=== PATIENT | male | born 1940 | race Caucasian/White ===

== ENCOUNTER 2016-09-15 18:20 | Inpatient (IN) | payer MEDICARE, BC ==
[~2016-09-15] VITALS: Ht 177.8 cm; Wt 90.0 kg
[~2016-09-15 18:20] MED LIST: BISM262T9 PO
[2016-09-15 21:20] VITALS: BP 119/86
[2016-09-15] MEDS ORDERED: LISI-167 PO (21:30)
[2016-09-15] MEDS ORDERED: MORPHINE SULFATE 4 MG/ML, 1ML IVPush PRN (22:30)
[2016-09-15] MEDS ORDERED: hydrALAzine 20 MG/ML, 1ML IV PRN (22:30)
[2016-09-15] MEDS ORDERED: PHARMACY MAY ADJ FOR RENAL FX MC PRN (22:30)
[2016-09-15] MEDS ORDERED: [UNRECOGNIZED DRUG - REMARK] MC PRN (23:00)
[2016-09-15 23:06] LABS: BLOOD UREA NITROGEN 20 mg/dL (7-18)
[2016-09-15] MEDS: NS + 20MEQ KCL 1,000 ML IV SCH (23:42)
[2016-09-15] MEDS: PIPERACILLIN/TAZO 3.375 GM in SODIUM CHLORIDE 0.9% 50 ML IV SCH (23:42)
[2016-09-15] MEDS: ONDANSETRON 2MG/ML, 2ML IVP PRN (23:49)
[2016-09-15 23:55] VITALS: BP 118/69
[2016-09-16 04:21] VITALS: BP 96/62
[2016-09-16] MEDS: PIPERACILLIN/TAZO 3.375 GM in SODIUM CHLORIDE 0.9% 50 ML IV SCH ×4 (04:51→22:21)
[2016-09-16] MEDS: ONDANSETRON 2MG/ML, 2ML IVP PRN (06:10)
[2016-09-16 06:18] LABS: ASPARTATE AMINO TRANSFERASE 148 U/L (15-37); BLOOD UREA NITROGEN 18 mg/dL (7-18)
[2016-09-16 06:47] LABS: DIFF TOTAL CELLS COUNTED 100 CELL DIFF
[2016-09-16 06:50] LABS: LARGE PLATELETS 1+; MONOS WITH VACUOLES 1+; VERIFY COUNTS? YES
[2016-09-16 07:56] VITALS: BP 127/69
[2016-09-16] MEDS: LISINOPRIL 10 MG TABLET PO SCH (09:00)
[2016-09-16] MEDS: NS + 20MEQ KCL 1,000 ML IV SCH ×2 (09:11→22:22)
[2016-09-16] MEDS ORDERED: FENTANYL PF 250 MCG/5ML ONE (13:22)
[2016-09-16] MEDS ORDERED: MIDAZOLAM 1 MG/ML, 2ML ONE (13:22)
[2016-09-16] MEDS ORDERED: EPHEDRINE 50 MG/ML, 1ML ONE (13:34)
[2016-09-16] MEDS ORDERED: ONDANSETRON 2MG/ML, 2ML ONE (13:34)
[2016-09-16] MEDS ORDERED: PROPOFOL 10 MG/ML, 20ML ONE (13:34)
[2016-09-16] MEDS ORDERED: SUCCINYLCHOLINE 20 MG/ML, 10ML ONE (13:34)
[2016-09-16] MEDS ORDERED: ROCURONIUM 10 MG/ML ONE (13:34)
[2016-09-16] MEDS ORDERED: PHENYLEPHRINE 10 MG/ML ONE (13:34)
[2016-09-16] MEDS ORDERED: OXYcodone 5 MG/5 ML ORAL.SOL UDC PO PRN (14:00)
[2016-09-16] MEDS ORDERED: LABETALOL 5MG/ML, 20ML IV PRN (14:00)
[2016-09-16] MEDS ORDERED: ONDANSETRON 2MG/ML, 2ML IVPush PRN (14:00)
[2016-09-16] MEDS ORDERED: hydrALAzine 20 MG/ML, 1ML IV PRN (14:00)
[2016-09-16] MEDS ORDERED: HYDROmorphone 1 MG/ML, 1ML IV PRN (14:00)
[2016-09-16] MEDS ORDERED: METOCLOPRAMIDE 5 MG/ML, 2ML IV PRN (14:00)
[2016-09-16] MEDS ORDERED: MIDAZOLAM 1 MG/ML, 2ML IV PRN (14:00)
[2016-09-16] MEDS ORDERED: FENTANYL PF 100 MCG/2ML IV PRN (14:00)
[2016-09-16] MEDS ORDERED: PROMETHAZINE 25 MG/ML, 1ML IV PRN (14:00)
[2016-09-16] MEDS ORDERED: MEPERIDINE/PF 25MG/0.5ML IVPush PRN (14:00)
[2016-09-16] MEDS ORDERED: ACETAMINOPHEN 325 MG TABLET PO PRN (14:00)
[2016-09-16] MEDS ORDERED: OMNIPAQUE 350 MG/ML, 50 ML BOTTLE ONE (15:24)
[2016-09-16 19:57] VITALS: BP 129/76
[2016-09-17 00:18] VITALS: BP 107/71
[2016-09-17] MEDS: PIPERACILLIN/TAZO 3.375 GM in SODIUM CHLORIDE 0.9% 50 ML IV SCH ×4 (04:24→22:46)
[2016-09-17 04:31] VITALS: BP 117/71
[2016-09-17] MEDS: NS + 20MEQ KCL 1,000 ML IV SCH ×3 (06:22→22:46)
[2016-09-17 07:19] VITALS: BP 126/73
[2016-09-17] MEDS: LISINOPRIL 10 MG TABLET PO SCH ×2 (08:03→15:17)
[2016-09-17 14:00] VITALS: BP 145/83
[2016-09-17 19:57] VITALS: BP 133/73
[2016-09-18] MEDS: PIPERACILLIN/TAZO 3.375 GM in SODIUM CHLORIDE 0.9% 50 ML IV SCH (04:22)
[2016-09-18 04:25] VITALS: BP 156/87
[2016-09-18 06:35] VITALS: BP 136/77
[2016-09-18 09:14] LABS: BLOOD UREA NITROGEN 8 mg/dL (7-18)
[2016-09-18 09:19] LABS: ASPARTATE AMINO TRANSFERASE 22 U/L (15-37)
[2016-09-18] MEDS: LISINOPRIL 10 MG TABLET PO SCH (09:22)
[2016-09-18 10:55] VITALS: BP 156/89
== END 2016-09-18 11:30 | disposition home or self-care (01) | DRG 438 ==
LOC: 4NOR 20:53 → DCLOUNGE 09-18 11:04
PROVIDERS: ADMIT Internal Medicine; ATTEND Internal Medicine
PROC: 0FC98ZZ Extirpation of Matter from Common Bile Duct, Via Natural or Artificial Opening Endoscopic (ICD-10-PCS; 2016-09-16)
PROC: BF131ZZ Fluoroscopy of Gallbladder and Bile Ducts using Low Osmolar Contrast (ICD-10-PCS; 2016-09-16)
PROC: 0F7C8DZ Dilation of Ampulla of Vater with Intraluminal Device, Via Natural or Artificial Opening Endoscopic (ICD-10-PCS; principal; 2016-09-16 13:00)
DX: K85.90 Acute pancreatitis without necrosis or infection, unspecified (principal); N17.0 Acute kidney failure with tubular necrosis; K80.43 Calculus of bile duct with acute cholecystitis with obstruction; Q78.2 Osteopetrosis; N18.9 Chronic kidney disease, unspecified; I12.9 Hypertensive chronic kidney disease with stage 1 through stage 4 chronic kidney disease, or unspecified chronic kidney disease; K21.9 Gastro-esophageal reflux disease without esophagitis; N20.0 Calculus of kidney; Z80.0 Family history of malignant neoplasm of digestive organs; Z87.11 Personal history of peptic ulcer disease; Z90.3 Acquired absence of stomach [part of]; Z87.442 Personal history of urinary calculi; Z90.49 Acquired absence of other specified parts of digestive tract; Z88.8 Allergy status to other drugs, medicaments and biological substances
CPT/HCPCS: 36415; 71010; 74328; 80048; 80053; 80076; 81003; 82150; 83690; 83735; 84100; 85025; 85610; 93005; J2250; J2405; J2543; J2704; J3010; J3480; Q9967; C1769; C2625; J0330; J2370

== ENCOUNTER 2016-11-14 19:50 | Inpatient (IN) | payer MEDICARE, BC ==
[~2016-11-14] VITALS: Ht 177.8 cm; Wt 87.7 kg
[~2016-11-14 19:50] MED LIST changes: +LISI-167 PO
[2016-11-14 21:52] VITALS: BP 143/80
[2016-11-14] MEDS ORDERED: morphine SULFATE 10 MG/ML, 1ML IVPush PRN (23:30)
[2016-11-14] MEDS ORDERED: TEMAZEPAM 15 MG CAPSULE PO PRN (23:30)
[2016-11-14] MEDS ORDERED: ENALAPRILAT 1.25 MG/ML, 2ML IVPush PRN (23:30)
[2016-11-14] MEDS ORDERED: DOCUSATE 100 MG CAPSULE PO PRN (23:30)
[2016-11-15] MEDS: DEXAMETHASONE 10 MG in SODIUM CHLORIDE 0.9% 50 ML IV SCH ×4 (00:50→17:51)
[2016-11-15 03:19] VITALS: BP 124/67
[2016-11-15 05:13] LABS: HEMATOCRIT 37.2 % (39.2-51.8); HEMOGLOBIN 12.4 g/dL (13.7-18.0); WHITE BLOOD COUNT 4.8 x10^3/uL (3.4-10)
[2016-11-15 05:24] LABS: BLOOD UREA NITROGEN 21 mg/dL (7-18)
[2016-11-15 08:01] VITALS: BP 115/67
[2016-11-15] MEDS: LISINOPRIL 10 MG TABLET PO SCH (08:59)
[2016-11-15 13:27] VITALS: BP 119/54
[2016-11-15 21:21] VITALS: BP 151/78
[2016-11-16] MEDS: DEXAMETHASONE 10 MG in SODIUM CHLORIDE 0.9% 50 ML IV SCH ×5 (01:07→19:24)
[2016-11-16 02:45] VITALS: BP 143/83
[2016-11-16 05:40] LABS: HEMATOCRIT 34.7 % (39.2-51.8); HEMOGLOBIN 11.5 g/dL (13.7-18.0); WHITE BLOOD COUNT 9.8 x10^3/uL (3.4-10)
[2016-11-16 05:46] LABS: ASPARTATE AMINO TRANSFERASE 13 U/L (15-37); BLOOD UREA NITROGEN 24 mg/dL (7-18)
[2016-11-16 06:53] VITALS: BP 121/63
[2016-11-16] MEDS: LISINOPRIL 10 MG TABLET PO SCH (10:43)
[2016-11-16 13:00] VITALS: BP 137/80
[2016-11-16 19:30] VITALS: BP 136/56
[2016-11-16] MEDS: ONDANSETRON 2MG/ML, 2ML IVPush PRN (21:57)
[2016-11-16] MEDS ORDERED: ALUMINUM/MAG/SIMETHICONE 30 ML UDC PO PRN (23:30)
[2016-11-16] MEDS ORDERED: PROMETHAZINE 25MG TABLET PO PRN (23:30)
[2016-11-17 01:08] VITALS: BP 121/69
[2016-11-17] MEDS: DEXAMETHASONE 10 MG in SODIUM CHLORIDE 0.9% 50 ML IV SCH ×4 (01:10→19:36)
[2016-11-17 05:01] LABS: HEMATOCRIT 33.3 % (39.2-51.8); HEMOGLOBIN 10.9 g/dL (13.7-18.0); WHITE BLOOD COUNT 8.4 x10^3/uL (3.4-10)
[2016-11-17 05:09] LABS: BLOOD UREA NITROGEN 25 mg/dL (7-18)
[2016-11-17 07:05] VITALS: BP 125/49
[2016-11-17 07:20] LABS: IS PT STATUS REG ER OR PRE ER? NO
[2016-11-17] MEDS: LISINOPRIL 10 MG TABLET PO SCH (08:51)
[2016-11-17 09:17] LABS: IS PT STATUS REG ER OR PRE ER? NO
[2016-11-17] MEDS ORDERED: REGADENOSON 0.4 MG/5 ML SYRINGE ONE (10:10)
[2016-11-17 13:55] VITALS: BP 130/70
[2016-11-17 19:42] VITALS: BP 140/81
[2016-11-18] MEDS: DEXAMETHASONE 10 MG in SODIUM CHLORIDE 0.9% 50 ML IV SCH ×4 (01:27→20:26)
[2016-11-18 01:31] VITALS: BP 119/73
[2016-11-18 04:56] LABS: HEMATOCRIT 33.3 % (39.2-51.8); HEMOGLOBIN 11.1 g/dL (13.7-18.0); WHITE BLOOD COUNT 7.8 x10^3/uL (3.4-10)
[2016-11-18 05:02] LABS: BLOOD UREA NITROGEN 29 mg/dL (7-18)
[2016-11-18 08:34] VITALS: BP 151/82
[2016-11-18] MEDS: LISINOPRIL 10 MG TABLET PO SCH (08:36)
[2016-11-18 13:06] VITALS: BP 134/78
[2016-11-18 18:40] VITALS: BP 130/78
[2016-11-19] MEDS: DEXAMETHASONE 10 MG in SODIUM CHLORIDE 0.9% 50 ML IV SCH ×4 (01:59→20:46)
[2016-11-19 02:00] VITALS: BP 147/82
[2016-11-19 05:54] LABS: HEMATOCRIT 33.5 % (39.2-51.8); HEMOGLOBIN 11.1 g/dL (13.7-18.0); WHITE BLOOD COUNT 6.4 x10^3/uL (3.4-10)
[2016-11-19 05:59] LABS: BLOOD UREA NITROGEN 31 mg/dL (7-18)
[2016-11-19 06:35] VITALS: BP 151/81
[2016-11-19] MEDS ORDERED: FENTANYL PF 100 MCG/2ML ONE (09:24)
[2016-11-19] MEDS ORDERED: EPHEDRINE 50 MG/ML, 1ML ONE (09:26)
[2016-11-19] MEDS ORDERED: DEXAMETHASONE 4 MG/ML, 1ML ONE (09:26)
[2016-11-19] MEDS ORDERED: ROCURONIUM 10 MG/ML ONE (09:26)
[2016-11-19] MEDS ORDERED: ONDANSETRON 2MG/ML, 2ML ONE (09:26)
[2016-11-19] MEDS ORDERED: SUCCINYLCHOLINE 20 MG/ML, 10ML ONE (09:26)
[2016-11-19] MEDS ORDERED: PROPOFOL 10 MG/ML, 20ML ONE (09:26)
[2016-11-19] MEDS: LISINOPRIL 10 MG TABLET PO SCH ×2 (09:56→11:41)
[2016-11-19] MEDS ORDERED: hydrALAzine 20 MG/ML, 1ML IV PRN (10:00)
[2016-11-19] MEDS ORDERED: ALBUTEROL SULFATE 2.5 MG/3 ML NPPB PRN (10:00)
[2016-11-19] MEDS ORDERED: ONDANSETRON 2MG/ML, 2ML IVPush PRN (10:00)
[2016-11-19] MEDS ORDERED: MIDAZOLAM 1 MG/ML, 5ML IV PRN (10:00)
[2016-11-19] MEDS ORDERED: HYDROmorphone 1 MG/ML, 1ML IV PRN (10:00)
[2016-11-19] MEDS ORDERED: LABETALOL 5MG/ML, 20ML IV PRN (10:00)
[2016-11-19] MEDS ORDERED: PROMETHAZINE 25 MG/ML, 1ML IV PRN (10:00)
[2016-11-19] MEDS ORDERED: FENTANYL PF 100 MCG/2ML IV PRN (10:00)
[2016-11-19] MEDS ORDERED: OXYcodone 5 MG/5 ML ORAL.SOL UDC PO PRN (10:00)
[2016-11-19] MEDS ORDERED: MEPERIDINE/PF 25MG/0.5ML IVPush PRN (10:00)
[2016-11-19] MEDS ORDERED: OMNIPAQUE 350 MG/ML, 50 ML BOTTLE ONE (10:46)
[2016-11-19 12:40] VITALS: BP 148/85
[2016-11-19] MEDS: ONDANSETRON 2MG/ML, 2ML IVPush PRN ×2 (14:52→21:42)
[2016-11-19 20:00] VITALS: BP 128/56
[2016-11-20 01:07] VITALS: BP 115/67
[2016-11-20] MEDS: DEXAMETHASONE 10 MG in SODIUM CHLORIDE 0.9% 50 ML IV SCH ×2 (03:24→08:00)
[2016-11-20] MEDS: NS + 20MEQ KCL 1,000 ML IV SCH ×3 (03:25→21:30)
[2016-11-20] MEDS ORDERED: FENTANYL PF 250 MCG/5ML ONE ×3 (07:07→09:23)
[2016-11-20] MEDS ORDERED: MIDAZOLAM 1 MG/ML, 2ML ONE (07:08)
[2016-11-20] MEDS ORDERED: ONDANSETRON 2MG/ML, 2ML ONE (07:49)
[2016-11-20] MEDS ORDERED: hydrALAzine 20 MG/ML, 1ML ONE (07:49)
[2016-11-20] MEDS ORDERED: EPHEDRINE 50 MG/ML, 1ML ONE (07:49)
[2016-11-20] MEDS ORDERED: CEFAZOLIN 1,000 MG ONE (07:49)
[2016-11-20] MEDS ORDERED: DEXAMETHASONE 4 MG/ML, 1ML ONE (07:49)
[2016-11-20] MEDS ORDERED: SUCCINYLCHOLINE 20 MG/ML, 10ML ONE (07:49)
[2016-11-20] MEDS ORDERED: PROPOFOL 10 MG/ML, 20ML ONE (07:49)
[2016-11-20] MEDS ORDERED: ROCURONIUM 10 MG/ML ONE (07:49)
[2016-11-20] MEDS ORDERED: MEPERIDINE/PF 25MG/0.5ML IVPush PRN (10:00)
[2016-11-20] MEDS ORDERED: LABETALOL 5MG/ML, 20ML IV PRN ×2 (10:00→13:30)
[2016-11-20] MEDS ORDERED: ALBUTEROL SULFATE 2.5 MG/3 ML NPPB PRN (10:00)
[2016-11-20] MEDS ORDERED: PROMETHAZINE 25 MG/ML, 1ML IV PRN (10:00)
[2016-11-20] MEDS ORDERED: ONDANSETRON 2MG/ML, 2ML IVPush PRN (10:00)
[2016-11-20] MEDS ORDERED: FENTANYL PF 100 MCG/2ML IV PRN (10:00)
[2016-11-20] MEDS ORDERED: OXYcodone 5 MG/5 ML ORAL.SOL UDC PO PRN (10:00)
[2016-11-20] MEDS ORDERED: hydrALAzine 20 MG/ML, 1ML IV PRN (10:00)
[2016-11-20] MEDS ORDERED: MIDAZOLAM 1 MG/ML, 2ML IV PRN (10:00)
[2016-11-20] MEDS ORDERED: HYDROmorphone 1 MG/ML, 1ML ONE (11:01)
[2016-11-20] MEDS ORDERED: OXYcodone 5 MG/5 ML ORAL.SOL UDC ONE (11:01)
[2016-11-20] MEDS: HYDROmorphone 1 MG/ML, 1ML IV PRN ×4 (11:05→11:40)
[2016-11-20 13:08] VITALS: BP 169/90
[2016-11-20] MEDS ORDERED: MAGNESIUM HYDROXIDE 8%, 30ML UDC PO PRN (13:30)
[2016-11-20] MEDS ORDERED: PROMETHAZINE 25 MG/ML, 1ML IM PRN (13:30)
[2016-11-20] MEDS ORDERED: DIAZEPAM 5 MG/ML, 2ML IV PRN (13:30)
[2016-11-20] MEDS ORDERED: BISACODYL 10 MG SUPP PR PRN (13:30)
[2016-11-20] MEDS ORDERED: DIPHENHYDRAMINE 50 MG/ML, 1ML IVPush PRN (13:30)
[2016-11-20] MEDS ORDERED: ONDANSETRON 2MG/ML, 2ML IV PRN (13:30)
[2016-11-20] MEDS ORDERED: morphine SULFATE 10 MG/ML, 1ML IV PRN (14:00)
[2016-11-20] MEDS: LISINOPRIL 10 MG TABLET PO SCH (14:43)
[2016-11-20] MEDS: CEFAZOLIN PMX 1GM/50ML 50 ML IVPB SCH (16:17)
[2016-11-20] MEDS: HYDROcodone/APAP 5/325 TABLET PO PRN (17:59)
[2016-11-20 18:49] VITALS: BP 163/82
[2016-11-20] MEDS: chlorproMAZINE 200MG TABLET PO SCH (22:19)
[2016-11-21] MEDS: CEFAZOLIN PMX 1GM/50ML 50 ML IVPB SCH (00:13)
[2016-11-21 02:05] VITALS: BP 114/68
[2016-11-21] MEDS: HYDROcodone/APAP 5/325 TABLET PO PRN ×3 (03:35→16:09)
[2016-11-21 05:20] LABS: HEMATOCRIT 36.8 % (39.2-51.8); HEMOGLOBIN 12.3 g/dL (13.7-18.0); WHITE BLOOD COUNT 12.7 x10^3/uL (3.4-10)
[2016-11-21 05:24] LABS: ASPARTATE AMINO TRANSFERASE 24 U/L (15-37); BLOOD UREA NITROGEN 21 mg/dL (7-18)
[2016-11-21] MEDS: chlorproMAZINE 200MG TABLET PO SCH ×3 (05:42→21:30)
[2016-11-21 08:20] VITALS: BP 132/76
[2016-11-21] MEDS: NS + 20MEQ KCL 1,000 ML IV SCH ×2 (08:30→21:00)
[2016-11-21] MEDS: SENNA/DOCUSATE TABLET PO SCH (10:07)
[2016-11-21] MEDS: LISINOPRIL 10 MG TABLET PO SCH (10:07)
[2016-11-21 15:10] VITALS: BP 127/79
[2016-11-21] MEDS: DIAZEPAM 5 MG TABLET PO PRN (17:41)
[2016-11-21 18:53] VITALS: BP 114/73
[2016-11-21] MEDS: OXYcodone/APAP 5/325MG TABLET PO PRN (23:02)
[2016-11-22 00:49] VITALS: BP 150/84
[2016-11-22] MEDS: OXYcodone/APAP 5/325MG TABLET PO PRN ×2 (03:04→09:29)
[2016-11-22 05:22] LABS: BLOOD UREA NITROGEN 17 mg/dL (7-18); HEMATOCRIT 38.2 % (39.2-51.8); HEMOGLOBIN 12.8 g/dL (13.7-18.0)
[2016-11-22 06:38] VITALS: BP 118/68
[2016-11-22] MEDS: chlorproMAZINE 200MG TABLET PO SCH (07:18)
[2016-11-22] MEDS: NS + 20MEQ KCL 1,000 ML IV SCH (09:27)
[2016-11-22] MEDS: SENNA/DOCUSATE TABLET PO SCH (09:29)
[2016-11-22] MEDS: LISINOPRIL 10 MG TABLET PO SCH (09:29)
[2016-11-22] MEDS ORDERED: OXYC1TAB7 PO (11:17)
[2016-11-22] MEDS: DIAZEPAM 5 MG TABLET PO PRN (11:40)
== END 2016-11-22 12:45 | disposition home or self-care (01) | DRG 471 ==
LOC: 4NOR 21:37 → 5SO 11-16 07:00 → 4NOR 11-18 17:15 → DCLOUNGE 11-22 11:43
PROVIDERS: ADMIT Hospitalist; ATTEND Family Medicine
PROC: 0FC98ZZ Extirpation of Matter from Common Bile Duct, Via Natural or Artificial Opening Endoscopic (ICD-10-PCS; 2016-11-19)
PROC: 0F798ZZ Dilation of Common Bile Duct, Via Natural or Artificial Opening Endoscopic (ICD-10-PCS; 2016-11-19)
PROC: BF101ZZ Fluoroscopy of Bile Ducts using Low Osmolar Contrast (ICD-10-PCS; 2016-11-19)
PROC: 0FPB8DZ Removal of Intraluminal Device from Hepatobiliary Duct, Via Natural or Artificial Opening Endoscopic (ICD-10-PCS; principal; 2016-11-19 15:45)
PROC: 0RG2071 Fusion of 2 or more Cervical Vertebral Joints with Autologous Tissue Substitute, Posterior Approach, Posterior Column, Open Approach (ICD-10-PCS; 2016-11-20)
DX: M48.02 Spinal stenosis, cervical region (principal); E43 Unspecified severe protein-calorie malnutrition; Q78.2 Osteopetrosis; I47.1 Supraventricular tachycardia; T85.520A Displacement of bile duct prosthesis, initial encounter; K80.70 Calculus of gallbladder and bile duct without cholecystitis without obstruction; K21.9 Gastro-esophageal reflux disease without esophagitis; D64.9 Anemia, unspecified; I10 Essential (primary) hypertension; I65.29 Occlusion and stenosis of unspecified carotid artery; Z86.19 Personal history of other infectious and parasitic diseases; Z87.11 Personal history of peptic ulcer disease; Z87.891 Personal history of nicotine dependence; Z68.27 Body mass index [BMI] 27.0-27.9, adult; Z88.8 Allergy status to other drugs, medicaments and biological substances
CPT/HCPCS: 36415; 71010; 72040; 74328; 78452; 80048; 80053; 81003; 84484; 85025; 85610; 85730; 86850; 86900; 93005; 93017; 95938; 95941; C1713; J0690; J1100; J1170; J2250; J2405; J2704; J2785; J3010; J3370; J3480; Q9967; A9502; C1725; C1762; C1769; C9898; J0330; J0360

== ENCOUNTER 2016-12-01 15:39 | Emergency (ER) | payer MEDICARE, BC ==
[~2016-12-01] VITALS: Ht 177.8 cm; Wt 84.4 kg
[~2016-12-01 15:39] MED LIST changes: +OXYC1TAB7 PO
[2016-12-01 15:40] VITALS: BP 168/97
[2016-12-01] MEDS ORDERED: DEXAMETHASONE 4 MG TABLET PO ONE (17:30)
[2016-12-01] MEDS ORDERED: DEXAMETHASONE 4 MG TABLET ONE (17:32)
== END 2016-12-01 18:05 | disposition home or self-care (01) ==
LOC: ED 17:30
DX: M54.12 Radiculopathy, cervical region (principal); K21.9 Gastro-esophageal reflux disease without esophagitis
CPT/HCPCS: 99283

== ENCOUNTER → 2017-03-21 | Outpatient (CLI) | payer MEDICARE, BC | LOC: CFH 10:36 | PROVIDERS: ATTEND Internal Medicine | DX: R06.09 Other forms of dyspnea (principal); R06.02 Shortness of breath; R09.89 Other specified symptoms and signs involving the circulatory and respiratory systems; M05.79 Rheumatoid arthritis with rheumatoid factor of multiple sites without organ or systems involvement; R76.8 Other specified abnormal immunological findings in serum; M25.552 Pain in left hip; Z79.899 Other long term (current) drug therapy | CPT/HCPCS: 71250 ==

== ENCOUNTER → 2017-05-01 | Outpatient (CLI) | payer MEDICARE, BC | END | disposition home or self-care (01) | LOC: RAD 11:27 | PROVIDERS: ATTEND Internal Medicine | DX: M16.12 Unilateral primary osteoarthritis, left hip (principal) ==

== ENCOUNTER → 2017-08-18 | Outpatient (CLI) | payer MEDICARE, BC | END | disposition home or self-care (01) | LOC: CARD 11:52 | PROVIDERS: ATTEND Internal Medicine Critical Care Medicine | DX: R06.02 Shortness of breath (principal); R03.0 Elevated blood-pressure reading, without diagnosis of hypertension | CPT/HCPCS: 94060; 94618; 94726; 94729 ==

== ENCOUNTER → 2017-10-08 | Outpatient (CLI) | payer MEDICARE, BC ==
[~2017-10-08] MED LIST changes: +CYAN1TAB29 PO; +INFLECTRA IV; +LOSARTAN PO; +PANT40TA5 PO; +TYLENOL ARTHRITIS PO
== END ==
LOC: RAD 14:07
PROVIDERS: ATTEND Nurse Practitioner Critical Care Medicine
DX: M51.16 Intervertebral disc disorders with radiculopathy, lumbar region (principal); M48.061 Spinal stenosis, lumbar region without neurogenic claudication
CPT/HCPCS: 72148

== ENCOUNTER 2017-11-25 09:53 | Day surgery (SDC) | payer MEDICARE, BC ==
[~2017-11-25] VITALS: Ht 177.8 cm; Wt 82.3 kg
[2017-11-25 10:18] VITALS: BP 168/101
[2017-11-25] MEDS ORDERED: PLEASE ENTER HEIGHT AND WEIGHT MC SCH (10:30)
[2017-11-25] MEDS ORDERED: PRED20TA PO (10:32)
[2017-11-25] MEDS ORDERED: FINA5TAB4 PO (10:32)
[2017-11-25] MEDS ORDERED: FOLI-17 PO (10:32)
[2017-11-25] MEDS ORDERED: CYAN25009 PO (10:32)
[2017-11-25] MEDS ORDERED: PRED10TA PO (10:32)
[2017-11-25] MEDS ORDERED: LOSA25TA5 PO (10:32)
[2017-11-25] MEDS ORDERED: TAMS0.4C2 PO (10:36)
[2017-11-25] MEDS ORDERED: GUAI12009 PO (10:37)
[2017-11-25] MEDS ORDERED: DIPHENHYDRAMINE 50 MG/ML, 1ML ONE (10:37)
[2017-11-25] MEDS ORDERED: BISM262O20 PO (10:40)
[2017-11-25] MEDS ORDERED: SODIUM CHLORIDE 0.9% 1,000 ML IV ONE (11:00)
[2017-11-25] MEDS ORDERED: FENTANYL PF 100 MCG/2ML ONE (11:02)
[2017-11-25] MEDS ORDERED: MIDAZOLAM 1 MG/ML, 5ML ONE (11:02)
[2017-11-25] MEDS ORDERED: LIDOCAINE-MPF 2% ,5ML ONE (11:03)
[2017-11-25] MEDS ORDERED: HEPARIN 1,000 UNITS/ML, 10ML ONE (11:03)
[2017-11-25] MEDS ORDERED: NITROGLYCERIN 5 MG/ML, 10ML ONE (11:28)
[2017-11-25] MEDS ORDERED: VERAPAMIL 2.5 MG/ML, 2ML ONE (11:28)
[2017-11-25] MEDS ORDERED: DIPHENHYDRAMINE 50 MG/ML, 1ML IVPush ONE (11:30)
[2017-11-25] MEDS ORDERED: LIDOCAINE/PF 1%, 30ML ONE (12:19)
[2017-11-25] MEDS ORDERED: SODIUM CHLORIDE 0.9% 1,000 ML IV SCH (13:46)
== END 2017-11-25 15:44 | disposition home or self-care (01) ==
LOC: CACL 09:53
PROVIDERS: ATTEND Internal Medicine Cardiovascular Disease
DX: I25.10 Atherosclerotic heart disease of native coronary artery without angina pectoris (principal); I10 Essential (primary) hypertension; Z88.1 Allergy status to other antibiotic agents; Z88.8 Allergy status to other drugs, medicaments and biological substances; Z98.890 Other specified postprocedural states
CPT/HCPCS: 93460; 99156; 99157; C1760; C1769; C1894; J1200; J2250; J3010; J3490; Q9967; J1644

== ENCOUNTER → 2017-11-26 | Outpatient (CLI) | payer MEDICARE, BC ==
[~2017-11-26] MED LIST changes: +BISM262O20 PO; +CYAN25009 PO; +FINA5TAB4 PO; +FOLI-17 PO; +GUAI12009 PO; +LOSA25TA5 PO; +PRED10TA PO; +PRED20TA PO; +TAMS0.4C2 PO
== END | disposition home or self-care (01) ==
LOC: RAD 11:29
PROVIDERS: ATTEND Registered Nurse
DX: M51.16 Intervertebral disc disorders with radiculopathy, lumbar region (principal)
CPT/HCPCS: 72110

== ENCOUNTER 2017-12-08 12:43 | Emergency (ER) | payer MEDICARE, BC ==
[~2017-12-08] VITALS: Ht 177.8 cm; Wt 83.0 kg
[2017-12-08 12:45] VITALS: BP 149/78
== END 2017-12-08 14:52 | disposition home or self-care (01) ==
LOC: ED 13:14
DX: G89.11 Acute pain due to trauma (principal); M25.572 Pain in left ankle and joints of left foot; K21.9 Gastro-esophageal reflux disease without esophagitis; M06.9 Rheumatoid arthritis, unspecified; X50.1XXA Overexertion from prolonged static or awkward postures, initial encounter; Y93.89 Activity, other specified; Y92.098 Other place in other non-institutional residence as the place of occurrence of the external cause; Y99.8 Other external cause status
CPT/HCPCS: 29515; 99284

== ENCOUNTER → 2017-12-08 | Outpatient (CLI) | payer MEDICARE, BC | END | disposition home or self-care (01) | LOC: RAD 11:29 | PROVIDERS: ATTEND Internal Medicine Critical Care Medicine | DX: J64 Unspecified pneumoconiosis (principal); M47.892 Other spondylosis, cervical region; Z98.890 Other specified postprocedural states; Z98.1 Arthrodesis status | CPT/HCPCS: 71250; 72050 ==

== ENCOUNTER → 2017-12-09 | Outpatient (CLI) | payer MEDICARE, BC ==
[2017-12-09 14:19] LABS: MEAN CORPUSCULAR HEMOGLOBIN 30.4 pg (27.5-34.5); MEAN CORPUSCULAR HGB CONC 33.6 g/dL (33.2-36.2); MEAN CORPUSCULAR VOLUME 90.4 fL (81-97); MEAN PLATELET VOLUME 7.8 fL (7.4-10.4); PLATELET COUNT 239 x10^3/uL (130-400); RED BLOOD COUNT 4.69 x10^6/uL (4.38-5.82); RED CELL DISTRIBUTION WIDTH 16.2 % (9.4-14.8)
[2017-12-09 14:23] LABS: MICROSCOPIC NOT IND
[2017-12-09 14:27] LABS: CULTURE INDICATED? NO
[2017-12-09 14:29] LABS: ANION GAP 7 mmol/L (5-15); CALCIUM 8.7 mg/dL (8.5-10.1); CHLORIDE 104 mmol/L (98-107); CREATININE 1.09 mg/dL (0.7-1.3)
[2017-12-09 15:01] LABS: INTERNATIONAL NORMALIZED RATIO 0.96 (0.93-1.1)
[2017-12-09 15:21] LABS: BASOPHILS # (AUTO) 0.03 x10^3/uL (0-0.1); BASOPHILS % (AUTO) 0 % (0-1); EOSINOPHILS # (AUTO) 0.08 x10^3/uL (0-0.4); EOSINOPHILS % (AUTO) 1 % (1-7); LYMPHOCYTES % (AUTO) 10 % (22-44); MONOCYTES # (AUTO) 1.17 x10^3/uL (0.2-0.8); MONOCYTES % (AUTO) 10 % (2-9); NEUTROPHILS # (AUTO) 9.87 x10^3/uL (1.8-6.8); NEUTROPHILS % (AUTO) 80 % (42-75)
[2017-12-09 15:23] LABS: MD YES
[2017-12-09 15:52] LABS: BAND#(MANUAL) 0.38 x10^3/uL; BANDS%(MANUAL) 3 % (0-7); BASOS#(MANUAL) 0.13 x10^3/uL (0-0.1); BASOS% (MANUAL) 1 % (0-1); LYMPH#(MANUAL) 1.26 x10^3/uL (1-3.4); LYMPHS% (MANUAL) 10 % (22-44); MONOS#(MANUAL) 1.13 x10^3/uL (0.3-2.7); MONOS% (MANUAL) 9 % (2-9); SEGS% (MANUAL) 77 % (42-75)
[2017-12-09 15:59] LABS: <PLATELET ESTIMATE> ADEQUATE; <PLT MORPHOLOGY> NORMAL PLT MORPH; <RBC MORPHOLOGY> NORMAL
== END | disposition home or self-care (01) ==
LOC: RAD 12:31
PROVIDERS: ATTEND Internal Medicine Cardiovascular Disease
DX: J84.9 Interstitial pulmonary disease, unspecified (principal); M54.16 Radiculopathy, lumbar region; R06.00 Dyspnea, unspecified
CPT/HCPCS: 36415; 71045; 78582; 80048; 81003; 85025; 85610; 85730; 93005; A9540; A9558

== ENCOUNTER → 2017-12-23 | Outpatient (CLI) | payer MEDICARE, BC | END | disposition home or self-care (01) | LOC: LAB 16:29 | PROVIDERS: ATTEND Neurological Surgery | DX: J47.9 Bronchiectasis, uncomplicated (principal); J84.9 Interstitial pulmonary disease, unspecified | CPT/HCPCS: 87070; 87102; 87205 ==

== ENCOUNTER → 2018-02-11 | Outpatient (CLI) | payer MEDICARE, BC ==
[~2018-02-11] MED LIST changes: -LOSA25TA5 PO; +LOSA25TA6 PO
[2018-02-11 13:36] LABS: FOLATE LEVEL > 20.0 ng/mL (3.1-17.5)
== END | disposition home or self-care (01) ==
LOC: CVU 12:11
PROVIDERS: ATTEND Orthopaedic Surgery
DX: R60.0 Localized edema (principal); R06.02 Shortness of breath; M06.9 Rheumatoid arthritis, unspecified; R20.0 Anesthesia of skin; R20.2 Paresthesia of skin; Z92.21 Personal history of antineoplastic chemotherapy
CPT/HCPCS: 36415; 82607; 82746; 84443; 93306

== ENCOUNTER 2018-02-17 08:14 | Day surgery (SDC) | payer MEDICARE, BC ==
[~2018-02-17] VITALS: Ht 177.8 cm; Wt 88.3 kg
[2018-02-17 08:53] VITALS: BP 142/90
[2018-02-17] MEDS ORDERED: SODIUM CHLORIDE 0.9% 1,000 ML IV SCH (08:54)
[2018-02-17] MEDS ORDERED: FENTANYL PF 100 MCG/2ML ONE (09:12)
[2018-02-17] MEDS ORDERED: MIDAZOLAM 1 MG/ML, 5ML ONE (09:12)
[2018-02-17] MEDS ORDERED: LIDOCAINE 2%, 20ML ONE (16:46)
[2018-02-17] MEDS ORDERED: LIDOCAINE GEL 2%, 5ML ONE (16:46)
== END 2018-02-17 12:40 | disposition home or self-care (01) ==
LOC: OUT 08:14
PROVIDERS: ATTEND Internal Medicine Critical Care Medicine
DX: J18.9 Pneumonia, unspecified organism (principal); G47.30 Sleep apnea, unspecified; J47.9 Bronchiectasis, uncomplicated; J84.9 Interstitial pulmonary disease, unspecified; I10 Essential (primary) hypertension; Z88.8 Allergy status to other drugs, medicaments and biological substances; Z88.1 Allergy status to other antibiotic agents
CPT/HCPCS: 31624; 87015; 87070; 87102; 87106; 87116; 87205; 87206; 88108; 88112; 88312; 99152; 99153; J2250; J3010; J3490; J7030

== ENCOUNTER → 2018-02-26 | Outpatient (CLI) | payer MEDICARE, BC ==
[2018-02-26 15:13] LABS: ALBUMIN 3.1 g/dL (3.4-5.0)
[2018-02-26 15:19] LABS: BILIRUBIN, DIRECT 0.2 mg/dL (0.1-0.2); BILIRUBIN,INDIRECT 0.8 mg/dL (0.0-2.0)
== END | disposition home or self-care (01) ==
LOC: LAB 14:44
PROVIDERS: ATTEND Internal Medicine Critical Care Medicine
DX: B37.1 Pulmonary candidiasis (principal)
CPT/HCPCS: 36415; 80076; 82150; 83690

== ENCOUNTER → 2018-03-10 | Outpatient (CLI) | payer MEDICARE, BC | END | disposition home or self-care (01) | LOC: RAD 10:54 | PROVIDERS: ATTEND Physician Assistant | DX: S86.012A Strain of left Achilles tendon, initial encounter (principal); M65.872 Other synovitis and tenosynovitis, left ankle and foot; X58.XXXA Exposure to other specified factors, initial encounter; Y93.89 Activity, other specified; Y92.89 Other specified places as the place of occurrence of the external cause; Y99.8 Other external cause status ==

== ENCOUNTER → 2018-04-28 | Outpatient (CLI) | payer MEDICARE, BC ==
[~2018-04-28] VITALS: Ht 177.8 cm; Wt 82.2 kg
[~2018-04-28] MED LIST changes: +INFL100V2 IV; +LOSA25TA25 PO; -LOSA25TA6 PO; +PRED50TA PO
[2018-04-28 14:25] LABS: ALANINE AMINOTRANSFERASE 59 U/L (12-78); ALBUMIN 3.3 g/dL (3.4-5.0); ANION GAP 8 mmol/L (5-15); CALCIUM 8.3 mg/dL (8.5-10.1); CHLORIDE 104 mmol/L (98-107); CREATININE 1.17 mg/dL (0.7-1.3)
[2018-04-28 14:27] LABS: ALKALINE PHOSPHATASE 75 U/L (45-117); BILIRUBIN,TOTAL 0.9 mg/dL (0.2-1.0)
== END | disposition home or self-care (01) ==
LOC: LAB 08:00 → EDSTATUS 04-30 08:00
PROVIDERS: ATTEND Orthopaedic Surgery Foot and Ankle Surgery
DX: Z01.818 Encounter for other preprocedural examination (principal); S86.012A Strain of left Achilles tendon, initial encounter; X58.XXXA Exposure to other specified factors, initial encounter; Y93.89 Activity, other specified; Y92.89 Other specified places as the place of occurrence of the external cause; Y99.8 Other external cause status
CPT/HCPCS: 36415; 80053; 93005

== ENCOUNTER 2018-05-27 13:13 | Outpatient (CLI) | payer MEDICARE, BC ==
[2018-05-27 13:23] LABS: BASOPHILS # (AUTO) 0.05 x10^3/uL (0-0.1); BASOPHILS % (AUTO) 1 % (0-1); EOSINOPHILS # (AUTO) 0.01 x10^3/uL (0-0.4); EOSINOPHILS % (AUTO) 0 % (1-7); LYMPHOCYTES # (AUTO) 1.18 x10^3/uL (1-3.4); LYMPHOCYTES % (AUTO) 14 % (22-44); MD NO; MEAN CORPUSCULAR HEMOGLOBIN 28.2 pg (27.5-34.5); MEAN CORPUSCULAR HGB CONC 32.9 g/dL (33.2-36.2); MEAN CORPUSCULAR VOLUME 85.9 fL (81-97); MEAN PLATELET VOLUME 7.9 fL (7.4-10.4); MONOCYTES # (AUTO) 0.32 x10^3/uL (0.2-0.8); MONOCYTES % (AUTO) 4 % (2-9); NEUTROPHILS # (AUTO) 6.77 x10^3/uL (1.8-6.8); NEUTROPHILS % (AUTO) 81 % (42-75); PLATELET COUNT 333 x10^3/uL (130-400); RED BLOOD COUNT 4.34 x10^6/uL (4.38-5.82); RED CELL DISTRIBUTION WIDTH 18.7 % (9.4-14.8)
[2018-05-27 13:35] LABS: IRON LEVEL 33 mcg/dL (65-175)
[2018-05-27 13:36] LABS: % IRON SATURATION 8 % (20-55); TOTAL IRON BINDING CAPACITY 422 mcg/dL (250-450)
== END 2018-05-27 23:59 | disposition home or self-care (01) ==
LOC: LAB 13:13
PROVIDERS: ATTEND Internal Medicine Cardiovascular Disease
DX: D64.9 Anemia, unspecified (principal); I25.10 Atherosclerotic heart disease of native coronary artery without angina pectoris; J43.9 Emphysema, unspecified; J84.9 Interstitial pulmonary disease, unspecified; R06.02 Shortness of breath; I10 Essential (primary) hypertension; Z87.891 Personal history of nicotine dependence
CPT/HCPCS: 36415; 83540; 83550; 85025

== ENCOUNTER 2018-07-27 12:16 | Outpatient (CLI) | payer MEDICARE, BC | END 2018-07-27 23:59 | disposition home or self-care (01) | LOC: CVU 12:16 | PROVIDERS: ATTEND Internal Medicine Cardiovascular Disease | DX: R60.0 Localized edema (principal); M66.879 Spontaneous rupture of other tendons, unspecified ankle and foot; I10 Essential (primary) hypertension; M06.9 Rheumatoid arthritis, unspecified; Z87.891 Personal history of nicotine dependence | CPT/HCPCS: 93922; 93970 ==

== ENCOUNTER → 2018-11-09 | Outpatient (CLI) | payer MEDICARE, BC ==
[2018-11-09 16:12] LABS: HCT (SEDRATE) 41.8 % (39.2-51.8)
[2018-11-09 16:14] LABS: BASOPHILS # (AUTO) 0.04 x10^3/uL (0-0.1); BASOPHILS % (AUTO) 1 % (0-1); EOSINOPHILS % (AUTO) 4 % (1-7); LYMPHOCYTES # (AUTO) 2.57 x10^3/uL (1-3.4); LYMPHOCYTES % (AUTO) 32 % (22-44); MD NO; MEAN CORPUSCULAR HEMOGLOBIN 30.8 pg (27.5-34.5); MEAN CORPUSCULAR HGB CONC 32.6 g/dL (33.2-36.2); MEAN CORPUSCULAR VOLUME 94.6 fL (81-97); MEAN PLATELET VOLUME 8.4 fL (7.4-10.4); MONOCYTES # (AUTO) 0.66 x10^3/uL (0.2-0.8); MONOCYTES % (AUTO) 8 % (2-9); NEUTROPHILS # (AUTO) 4.43 x10^3/uL (1.8-6.8); NEUTROPHILS % (AUTO) 55 % (42-75); PLATELET COUNT 229 x10^3/uL (130-400); RED BLOOD COUNT 4.41 x10^6/uL (4.38-5.82); RED CELL DISTRIBUTION WIDTH 15.1 % (9.4-14.8)
[2018-11-09 16:20] LABS: ALBUMIN 3.6 g/dL (3.4-5.0); ANION GAP 7 mmol/L (5-15); C-REACTIVE PROTEIN, QUANT 0.13 mg/dL (0.02-0.49); CALCIUM 9.3 mg/dL (8.5-10.1); CHLORIDE 109 mmol/L (98-107)
[2018-11-09 16:23] LABS: ALANINE AMINOTRANSFERASE 30 U/L (12-78); ALKALINE PHOSPHATASE 125 U/L (45-117); BILIRUBIN,TOTAL 0.8 mg/dL (0.2-1.0); CREATININE 1.04 mg/dL (0.7-1.3)
== END | disposition home or self-care (01) ==
LOC: LAB 15:42
PROVIDERS: ATTEND Internal Medicine Rheumatology
DX: M06.9 Rheumatoid arthritis, unspecified (principal); Z79.899 Other long term (current) drug therapy
CPT/HCPCS: 36415; 80053; 85025; 85651; 86140